=== PATIENT | male | born 1955 | race Caucasian/White ===

== ENCOUNTER 2016-05-23 00:07 | Observation (INO) | payer OTHER ==
[~2016-05-23] VITALS: Ht 172.7 cm; Wt 86.1 kg
[~2016-05-23 00:07] MED LIST: ADVIL PM1 TABLET PO; ALBUTEROL2.5 MG/3 M IH; ATORVASTATIN CA40 MG PO; AZITHROMYCIN500 M1 PO; CITALOPRAM HBR20 MG PO; DALIRESP500 MCG PO; DUONEB 2.5-0.5 M3 ML AEROSOL; METFORMIN HCL1000 MG PO; OMEPRAZOLE40 M1 PO; PREDNISONE10 MG PO; PREDNISONE20 MG PO; SPIRIVA1 INHALATI IH; SYMBICORT60 INHALAT IH; VENTOLIN HFA18 GM IH
[2016-05-23 00:39] LABS: HEMATOCRIT 28.8 % (38.0-50.0); MCH 30.6 PG (29.0-34.0); MCHC 32.3 G/DL (30.0-36.0); MCV 94.7 FL (86-99); MEAN PLAT.VOLUME 9.1 uM^3 (9.0-12.4); PLATELET COUNT 373 K/uL (156-360); RBC DIS.WIDTH-CV 14.3 % (11.8-14.6); RBC DIS.WIDTH-SD 45.4 % (39-53)
[2016-05-23 00:47] LABS: RED BLOOD COUNT 3.04 M/uL (4.00-5.50); WHITE BLOOD COUNT 10.4 K/uL (4.1-10.2)
[2016-05-23 01:01] LABS: CHLORIDE 92 mEq/L (99-109); POTASSIUM 3.3 mEq/L (3.7-5.4); SODIUM 137 mEq/L (136-147)
[2016-05-23 01:03] LABS: GLUCOSE 133 mg/dL (70-99)
[2016-05-23 01:04] LABS: ANION GAP 13 MEQ/L (2-14)
[2016-05-23 01:07] LABS: GFR ESTIMATE (CALCULATED) > 59 mL/min/; UREA NITROGEN (BUN) 33 mg/dL (9-23)
[2016-05-23 01:14] LABS: TROP-I INTERPRETATION INDETERMINATE; TROPONIN-I 0.47 ng/mL (0.0-0.30)
[2016-05-23] MEDS ORDERED: MAG-OXIDE400 MG PO (01:51)
[2016-05-23] MEDS ORDERED: CLONAZEPAM0.5 MG PO ×2 (01:51→02:07)
[2016-05-23] MEDS ORDERED: ASCORBIC ACID500 M3 PO (02:05)
[2016-05-23] MEDS ORDERED: AMIODARONE HCL200 MG PO (02:05)
[2016-05-23] MEDS ORDERED: LO-DOSE ASPIRIN81 M2 PO (02:05)
[2016-05-23] MEDS ORDERED: PRADAXA150 MG PO (02:05)
[2016-05-23] MEDS ORDERED: PERCOCET 7.51 TABLET PO (02:06)
[2016-05-23] MEDS ORDERED: MAGNESIUM400 M1 PO (02:06)
[2016-05-23] MEDS ORDERED: IRON325 M1 PO (02:06)
[2016-05-23] MEDS ORDERED: KLOR-CON M2020 MEQ PO (02:06)
[2016-05-23] MEDS ORDERED: FOLIC ACID1 MG PO (02:06)
[2016-05-23] MEDS ORDERED: FUROSEMIDE20 MG PO (02:06)
[2016-05-23] MEDS ORDERED: METOPROLOL TART50 MG PO (02:06)
[2016-05-23] MEDS ORDERED: CITALOPRAM HBR20 MG PO (02:07)
[2016-05-23] MEDS ORDERED: OMEPRAZOLE40 M1 PO (02:07)
[2016-05-23] MEDS ORDERED: METFORMIN HCL500 MG PO (02:07)
[2016-05-23] MEDS ORDERED: DALIRESP500 MCG PO (02:07)
[2016-05-23] MEDS ORDERED: ATORVASTATIN CA40 MG PO (02:07)
[2016-05-23] MEDS ORDERED: SPIRIVA1 INHALATI IH (02:07)
[2016-05-23] MEDS ORDERED: SYMBICORT60 INHALAT IH (02:08)
[2016-05-23 04:30] VITALS: BP 119/56
[2016-05-23 07:42] LABS: POINT-OF-CARE METER ID UU13113831
[2016-05-23 08:26] LABS: TROP-I INTERPRETATION INDETERMINATE; TROPONIN-I 0.43 ng/mL (0.0-0.30)
[2016-05-23 08:34] LABS: Estimated Average Glucose 140 mg/dL (70-123); HEMOGLOBIN A1c (GLYCOHEMOGLOB) 6.5 % HGB (Below 5.7)
[2016-05-23 08:39] VITALS: BP 126/56
[2016-05-23 08:42] LABS: HDL CHOLESTEROL 17 MG/DL (Desirable>=40); LDL CHOLESTEROL 42 mg/dL (Desirable<100); NON-HDL CHOLESTEROL 66 mg/dL (Desirable<160); TOTAL CHOLESTEROL 83 mg/dL (Desirable<200); TRIGLYCERIDES 122 MG/DL (Normal: <150)
[2016-05-23 12:31] LABS: POINT-OF-CARE METER ID UU14162513
[2016-05-23 12:44] VITALS: BP 109/57
[2016-05-23 14:36] LABS: ANION GAP 9 MEQ/L (2-14); CHLORIDE 94 MEQ/L (99-109); GFR ESTIMATE (CALCULATED) > 59 mL/min/; GLUCOSE 156 mg/dL (70-99); SAMPLE HEMOLYSIS CHECK 0; SAMPLE ICTERIC CHECK 0; SAMPLE LIPEMIA CHECK 0; SODIUM 136 MEQ/L (136-147); UREA NITROGEN (BUN) 27 mg/dL (9-23)
[2016-05-23 14:38] LABS: POTASSIUM 4.2 MEQ/L (3.7-5.4)
[2016-05-23 14:40] LABS: TROP-I INTERPRETATION INDETERMINATE
== END 2016-05-23 14:05 | disposition home or self-care (01) ==
LOC: EME → EDBD 00:07 → EME 00:07 → EDOF 02:21 → 5WEST 04:15
PROVIDERS: Internal Medicine; Physician Assistant Medical
DX: F41.9 Anxiety disorder, unspecified (principal); Z95.2 Presence of prosthetic heart valve; R07.9 Chest pain, unspecified; R05 Cough; N17.9 Acute kidney failure, unspecified; I35.0 Nonrheumatic aortic (valve) stenosis; E11.65 Type 2 diabetes mellitus with hyperglycemia; J44.9 Chronic obstructive pulmonary disease, unspecified; I25.10 Atherosclerotic heart disease of native coronary artery without angina pectoris; E78.5 Hyperlipidemia, unspecified; I10 Essential (primary) hypertension; E03.9 Hypothyroidism, unspecified; Z87.891 Personal history of nicotine dependence; Z82.5 Family history of asthma and other chronic lower respiratory diseases; Z79.82 Long term (current) use of aspirin; Z79.84 Long term (current) use of oral hypoglycemic drugs
CPT/HCPCS: 71020; 80048; 80048 91; 80061; 82948; 83036; 83735; 84484; 85027; 93005; 94640; 99281; 99285; G0378; J1815; J2405; J3480

== ENCOUNTER 2017-04-18 08:13 | Emergency (ER) | payer OTHER ==
[~2017-04-18] VITALS: Ht 170.2 cm; Wt 84.6 kg
[~2017-04-18 08:13] MED LIST changes: +AMIODARONE HCL200 MG PO; +ASCORBIC ACID500 M3 PO; +CLONAZEPAM0.5 MG PO; +FOLIC ACID1 MG PO; +FUROSEMIDE20 MG PO; +IRON325 M1 PO; +KLOR-CON M2020 MEQ PO; +LO-DOSE ASPIRIN81 M2 PO; +MAG-OXIDE400 MG PO; +MAGNESIUM400 M1 PO; +METFORMIN HCL500 MG PO; +METOPROLOL TART50 MG PO; +PERCOCET 7.51 TABLET PO; +PRADAXA150 MG PO
[2017-04-18 08:51] LABS: HEMATOCRIT 37.2 % (38.0-50.0); MCH 32.2 PG (29.0-34.0); MCHC 33.6 G/DL (30.0-36.0); MCV 95.9 FL (86-99); MEAN PLAT.VOLUME 8.6 uM^3 (9.0-12.4); PLATELET COUNT 264 K/uL (156-360); RBC DIS.WIDTH-CV 13.9 % (11.8-14.6); RBC DIS.WIDTH-SD 48.9 % (39-53); RED BLOOD COUNT 3.88 M/uL (4.00-5.50); WHITE BLOOD COUNT 8.1 K/uL (4.1-10.2)
[2017-04-18 09:11] LABS: ANION GAP 4 MEQ/L (2-14); CHLORIDE 108 MEQ/L (99-109); SAMPLE HEMOLYSIS CHECK 0; SAMPLE ICTERIC CHECK 0; SAMPLE LIPEMIA CHECK 0; SODIUM 141 MEQ/L (136-147); TOTAL BILIRUBIN 0.6 MG/DL (0.0-1.0)
[2017-04-18 09:17] LABS: ALKALINE PHOSPHATASE 38 IU/L (3-129); GFR ESTIMATE (CALCULATED) > 59 mL/min/; GLUCOSE 158 mg/dL (70-99); UREA NITROGEN (BUN) 11 mg/dL (9-23)
[2017-04-18 09:24] LABS: TROP-I INTERPRETATION NEGATIVE; TROPONIN-I < 0.01 ng/mL (0.0-0.30)
[2017-04-18] MEDS ORDERED: PROVENTIL,2.5 MG/3 M IH (09:49)
[2017-04-18] MEDS ORDERED: PREDNISONE20 MG PO (09:49)
[2017-04-18 10:16] VITALS: BP 139/64
== END 2017-04-18 10:16 | disposition home or self-care (01) ==
LOC: EME 08:13
PROVIDERS: Nurse Practitioner Family
DX: J44.0 Chronic obstructive pulmonary disease with (acute) lower respiratory infection (principal); J20.9 Acute bronchitis, unspecified; E11.9 Type 2 diabetes mellitus without complications; F41.9 Anxiety disorder, unspecified; F32.9 Major depressive disorder, single episode, unspecified; Z79.84 Long term (current) use of oral hypoglycemic drugs; Z87.891 Personal history of nicotine dependence; Z95.1 Presence of aortocoronary bypass graft
CPT/HCPCS: 71020; 80053; 84484; 85027; 87502; 93005; 94640; 99281; 99285; J7030; J7512

== ENCOUNTER 2017-04-27 14:08 | Inpatient (IN) | payer OTHER ==
[~2017-04-27] VITALS: Ht 172.7 cm; Wt 86.3 kg
[~2017-04-27 14:08] MED LIST changes: +PROVENTIL,2.5 MG/3 M IH
[2017-04-27 14:48] LABS: HEMATOCRIT 36.5 % (38.0-50.0); MCH 31.9 PG (29.0-34.0); MCHC 33.7 G/DL (30.0-36.0); MCV 94.6 FL (86-99); MEAN PLAT.VOLUME 8.4 uM^3 (9.0-12.4); PLATELET COUNT 236 K/uL (156-360); RBC DIS.WIDTH-CV 13.8 % (11.8-14.6); RBC DIS.WIDTH-SD 47.8 % (39-53); RED BLOOD COUNT 3.86 M/uL (4.00-5.50); WHITE BLOOD COUNT 8.7 K/uL (4.1-10.2)
[2017-04-27 14:58] LABS: CHLORIDE 104 mEq/L (99-109); POTASSIUM 4.2 mEq/L (3.7-5.4); SODIUM 139 mEq/L (136-147)
[2017-04-27 15:00] LABS: GLUCOSE 119 mg/dL (70-99)
[2017-04-27 15:02] LABS: ANION GAP 10 MEQ/L (2-14)
[2017-04-27 15:04] LABS: GFR ESTIMATE (CALCULATED) > 59 mL/min/ (58.99-99999)
[2017-04-27 15:05] LABS: UREA NITROGEN (BUN) 13 mg/dL (9-23)
[2017-04-27 17:02] LABS: INTERNAL CONTROL VALID? YES; MONOSPOT (MONONUCLEOSIS SEROL) NEGATIVE
[2017-04-27] MEDS ORDERED: METOPROLOL TART25 MG PO (19:13)
[2017-04-27] MEDS ORDERED: ALBUTEROL2.5 MG/3 M IH (19:15)
[2017-04-27] MEDS ORDERED: METFORMIN HCL1000 MG PO (19:16)
[2017-04-27] MEDS ORDERED: CITALOPRAM HBR40 MG PO (19:17)
[2017-04-27] MEDS ORDERED: CLONAZEPAM1 MG PO (19:18)
[2017-04-27] MEDS ORDERED: PROAIR HFA8.5 GM IH (19:19)
[2017-04-27 22:41] VITALS: BP 115/53
[2017-04-27 23:38] LABS: POINT-OF-CARE METER ID UU13113774
[2017-04-28 01:10] VITALS: BP 110/61
[2017-04-28 05:52] LABS: POINT-OF-CARE METER ID UU13113725
[2017-04-28 06:26] LABS: HEMATOCRIT 36.2 % (38.0-50.0); MCH 31.4 PG (29.0-34.0); MCHC 32.9 G/DL (30.0-36.0); MCV 95.5 FL (86-99); MEAN PLAT.VOLUME 9.2 uM^3 (9.0-12.4); PLATELET COUNT 230 K/uL (156-360); RBC DIS.WIDTH-CV 13.8 % (11.8-14.6); RED BLOOD COUNT 3.79 M/uL (4.00-5.50); WHITE BLOOD COUNT 6.7 K/uL (4.1-10.2)
[2017-04-28 06:47] LABS: ANION GAP 8 MEQ/L (2-14); CHLORIDE 107 MEQ/L (99-109); GFR ESTIMATE (CALCULATED) > 59 mL/min/ (58.99-99999); POTASSIUM 4.3 MEQ/L (3.7-5.4); SAMPLE HEMOLYSIS CHECK 0; SAMPLE ICTERIC CHECK 0; SAMPLE LIPEMIA CHECK 0; SODIUM 139 MEQ/L (136-147); UREA NITROGEN (BUN) 16 mg/dL (9-23)
[2017-04-28 07:01] VITALS: BP 136/61
[2017-04-28 07:01] LABS: GLUCOSE 221 mg/dL (70-99)
[2017-04-28 11:41] LABS: POINT-OF-CARE METER ID UU13113725
[2017-04-28 15:36] VITALS: BP 139/65
[2017-04-28 16:37] LABS: POINT-OF-CARE METER ID UU13113725
[2017-04-28 22:16] LABS: POINT-OF-CARE METER ID UU13113725
[2017-04-29 00:05] VITALS: BP 140/76
[2017-04-29 05:38] LABS: POINT-OF-CARE METER ID UU13113725
[2017-04-29 05:50] LABS: HEMATOCRIT 34.5 % (38.0-50.0); MCH 32.4 PG (29.0-34.0); MCHC 33.6 G/DL (30.0-36.0); MCV 96.4 FL (86-99); MEAN PLAT.VOLUME 9.2 uM^3 (9.0-12.4); PLATELET COUNT 238 K/uL (156-360); RBC DIS.WIDTH-CV 14.1 % (11.8-14.6); RBC DIS.WIDTH-SD 49.6 % (39-53); RED BLOOD COUNT 3.58 M/uL (4.00-5.50); WHITE BLOOD COUNT 18.4 K/uL (4.1-10.2)
[2017-04-29 06:28] LABS: ANION GAP 10 MEQ/L (2-14); CHLORIDE 110 MEQ/L (99-109); GFR ESTIMATE (CALCULATED) > 59 mL/min/ (58.99-99999); GLUCOSE 162 mg/dL (70-99); POTASSIUM 4.1 MEQ/L (3.7-5.4); SAMPLE HEMOLYSIS CHECK 0; SAMPLE ICTERIC CHECK 0; SAMPLE LIPEMIA CHECK 0; SODIUM 141 MEQ/L (136-147); UREA NITROGEN (BUN) 20 mg/dL (9-23)
[2017-04-29 07:10] VITALS: BP 126/64
[2017-04-29 11:29] LABS: POINT-OF-CARE METER ID UU13113725
[2017-04-29 14:58] VITALS: BP 146/66
[2017-04-29 16:32] LABS: POINT-OF-CARE METER ID UU13113725
[2017-04-29 20:42] LABS: POINT-OF-CARE METER ID UU13113725
[2017-04-29 23:13] VITALS: BP 134/66
[2017-04-30 06:13] LABS: HEMATOCRIT 35.3 % (38.0-50.0); MCH 31.8 PG (29.0-34.0); MCHC 33.1 G/DL (30.0-36.0); MCV 95.9 FL (86-99); MEAN PLAT.VOLUME 9.4 uM^3 (9.0-12.4); PLATELET COUNT 259 K/uL (156-360); RBC DIS.WIDTH-SD 49.7 % (39-53); RED BLOOD COUNT 3.68 M/uL (4.00-5.50); WHITE BLOOD COUNT 15.9 K/uL (4.1-10.2)
[2017-04-30 06:13] LABS: POINT-OF-CARE METER ID UU13113725
[2017-04-30 07:00] VITALS: BP 151/70
[2017-04-30 11:40] LABS: POINT-OF-CARE METER ID UU13113774
[2017-04-30] MEDS ORDERED: PREDNISONE20 MG PO (12:39)
[2017-04-30] MEDS ORDERED: SYMBICORT60 INHALAT IH (12:39)
[2017-04-30] MEDS ORDERED: SPIRIVA1 INHALATI IH (12:39)
[2017-04-30] MEDS ORDERED: DOXYCYCLINE HY100 MG PO (12:39)
[2017-04-30] MEDS ORDERED: XOPENEX1.25 MG/3 IH (12:40)
== END 2017-04-30 14:35 | disposition home or self-care (01) | DRG 872 ==
LOC: EME 14:08 → 5EAST 18:49 → EDOF 18:49 → CANRESERV 18:50 → ENRESERV 18:50 → CANRESERV 19:18 → ENRESERV 19:18 → 5EAST 22:14 → ENPENDDIS 04-30 → 5EAST 04-30 14:35
PROVIDERS: Hospitalist; Internal Medicine
DX: A41.9 Sepsis, unspecified organism (principal); J44.1 Chronic obstructive pulmonary disease with (acute) exacerbation; I25.10 Atherosclerotic heart disease of native coronary artery without angina pectoris; I10 Essential (primary) hypertension; F41.9 Anxiety disorder, unspecified; F32.9 Major depressive disorder, single episode, unspecified; Z95.1 Presence of aortocoronary bypass graft; Z87.891 Personal history of nicotine dependence; E11.9 Type 2 diabetes mellitus without complications; E78.5 Hyperlipidemia, unspecified; E03.9 Hypothyroidism, unspecified; Z79.01 Long term (current) use of anticoagulants; J44.0 Chronic obstructive pulmonary disease with (acute) lower respiratory infection; J20.9 Acute bronchitis, unspecified; R00.0 Tachycardia, unspecified
CPT/HCPCS: 71010; 71020; 71250; 80048; 82948; 83605; 85027; 86308; 87040; 87070; 87205; 94640; 94640 76; 99202; 99281; 99285; J0696; J1100; J1644; J1815; J1956; J2060; J2920; J7030

== ENCOUNTER → 2017-12-10 | Outpatient (CLI) | payer OTHER ==
[~2017-12-10] MED LIST changes: +CITALOPRAM HBR40 MG PO; +CLONAZEPAM1 MG PO; +DOXYCYCLINE HY100 MG PO; +METOPROLOL TART25 MG PO; +PROAIR HFA8.5 GM IH; +XOPENEX1.25 MG/3 IH
== END | disposition home or self-care (01) ==
LOC: NUC 08:30
DX: C61 Malignant neoplasm of prostate (principal)
CPT/HCPCS: 78306; A9503